=== PATIENT | female | born 1985 | race Two or more races ===

== ENCOUNTER 2023-01-15 12:42 | Outpatient (REF) | payer MEDICAID, OTHER, SELFPAY ==
--- NOTE | ~2023-01-15 | US_ITS ---
EXAMINATION: US PELVIS COMPLETE CLINICAL INFORMATION: Abnormal uterine bleeding COMPARISON: None TECHNIQUE: Transabdominal and transvaginal imaging was performed. FINDINGS: The uterus is of normal size and echogenicity measuring 10.5 x 4.7 x 5.1 cm. A regular homogeneous endometrium is identified measuring 0.8 cm. Both ovaries are of echogenicity and appearance. The right measures 3.9 x 2.2 x 3.1 cm for a volume of 13.9 mL. The left measures 3.9 x 2.9 x 3.5 cm for a volume of 20.7 mL. There is trace physiologic volume simple pelvic free fluid. US/US pelvic and transvaginal IMPRESSION: Unremarkable pelvic ultrasound.
== END 2023-01-15 12:43 | disposition home or self-care (01) ==
LOC: HO.US 12:42
PROVIDERS: Visit Provider Advanced Practice Midwife
DX: N93.9 Abnormal uterine and vaginal bleeding, unspecified (principal)
CPT/HCPCS: 76830; 76856

== ENCOUNTER 2023-05-17 17:30 | Outpatient (REF) | payer MEDICAID, OTHER, SELFPAY ==
[2023-05-18 12:06] LABS: BV Int Neg Control Negative (Negative); BV Int Pos Control Positive (Positive)
== END 2023-05-17 17:31 | disposition home or self-care (01) ==
LOC: HO.HHCLNP 17:30
PROVIDERS: Visit Provider Advanced Practice Midwife
DX: N89.8 Other specified noninflammatory disorders of vagina (principal)
CPT/HCPCS: 87480; 87510; 87660

== ENCOUNTER 2023-07-18 18:39 | Outpatient (REF) | payer MEDICAID, OTHER, SELFPAY ==
[2023-07-20 14:52] LABS: C. trachomatis RNA TMA NOT DETECTED (NOT DETECTED); Candida glabrata RNA NOT DETECTED (NOT DETECTED); Candida species RNA NOT DETECTED (NOT DETECTED); N. gonorrhoeae RNA TMA NOT DETECTED (NOT DETECTED); Trichomonas vaginalis RNA NOT DETECTED (NOT DETECTED)
== END 2023-07-18 18:40 | disposition home or self-care (01) ==
LOC: HO.HHCLNP 18:39
PROVIDERS: Visit Provider Emergency Medicine
DX: N91.1 Secondary amenorrhea (principal)
CPT/HCPCS: 36415; 81513; 87086; 87481; 87491; 87591; 87661

== ENCOUNTER 2025-01-12 16:01 | Outpatient (REF) | payer MEDICAID, OTHER, SELFPAY ==
[2025-01-12 18:10] LABS: Bacterial Vaginosis PCR NEGATIVE (Negative); Candida Group PCR DETECTED (Not Detect); Candida glab krusei PCR NOT DETECTED (Not Detect); Trichomonas vaginalis PCR NOT DETECTED (Not Detect)
[2025-01-12 18:43] LABS: CT PCR NOT DETECTED (Not Detect.); NG PCR NOT DETECTED (Not Detect.)
--- OUTSIDE RECORDS SUMMARY | 2025-01-12 18:43 | XMS_ITS | Encounter Summary ---
Author Organization [employer] Address [address] [place] [address] Care Team Providers Care Museum Assistant Name Role Phone Alma Rosa Monahan NP Primary Care Provider [phone] Reason for Visit * Reason Comments Vaginal Discharge Encounter Details Date Type Department Care Team (Late st Contact Info) Description 01/12/2025 2:00 PM EDT Office Visit [facility] [address], [place] [phone] Jamila Huynh MD [address], [place] [phone] Vaginal discharge Social History Tobacco Use Types Packs/Day Years Used Date Smoking Tobacco: Never Smokeless Tobacco: Never Alcohol Use Standard Drinks/Week Comments Not Currently 0 (1 standard drink = 0.6 oz pur e alcohol) Comments No Sex and Gender Information Value Date Recorded Sex Assigned at Female 07/17/2022 10:39 AM EDT Legal Sex Female 10:39 AM EDT Gender Identity Choose not to disclose 10:39 AM EDT Sexual Orientation Choose not to disclose 2021 10:39 AM EDT documented as of this encounter Last Filed Vital Signs Vital Sign Reading Time Taken Comments Blood Pressure 140/87 01/12/2025 1:41 PM EDT Pulse 86 01/12/2025 1:41 PM EDT Temperature 36.8 ??C (98.2 ??F) 01/12/2025 1:41 PM ED T Respiratory Rate 16 01/12/2025 1:41 PM EDT Oxygen Saturation 99% 01/12/2025 1:41 PM EDT Inhaled Oxygen Concentration - - Weight 79.8 kg (176 lb) 01/12/2025 1:41 PM EDT Height - - Body Mass Index 33.25 02/04/2024 2:05 PM EDT documented in this encounter Progress Notes * Jamila Huynh MD - 01/12/2025 2:00 PM EDT SUBJECTIVE: Rosemary Dorado is a 39 y.o. year old adult who presents for Walk [facility]/vag discharge . Denies recent illness, injury, or hospitalization. Acute Concerns: Pat co whitish, pruriginous vaginal discharge x 2d, dysuria and mild suprapubic pain. Neg nausea, vomiting, diarrhea, fever, chills. She hasn't taken abs recently. She takes OCP daily. Social History Social History Narrative Not on file There is no problem list on file for this patient. No family history on file. Review of Systems Constitutional: Negative for chills, fatigue and fever. HENT: Negative for congestion, ear pain, nosebleeds, rhinorrhea, sinus pressure, sore throat and trouble swallowing. Eyes: Negative for pain and discharge. Respiratory: Negative for cough, chest tightness and shortness of breath. Cardiovascular: Negative for chest pain, palpitations and leg swelling. Gastrointestinal: Negative for abdominal pain, blood in stool, constipation, diarrhea and nausea. Endocrine: Negative for polydipsia and polyuria. Genitourinary: Positive for vaginal discharge. Negative for dysuria, frequency, genital sores and pelvic pain. Musculoskeletal: Negative for back pain and neck pain. Skin: Negative for rash. Allergic/Immunologic: Negative for environmental allergies. Neurological: Negative for dizziness, seizures, weakness, light-headedness and headaches. Hematological: Negative for adenopathy. Psychiatric/Behavioral: Negative for agitation, behavioral problems, self-injury and suicidal ideas. OBJECTIVE: Vitals: 01/12/25 1341 BP: (!) 140/87 Pulse: 86 Resp: 16 Temp: 98.2 ??F (36.8 ??C) SpO2: 99% Physical Exam HENT: Right Ear: Tympanic membrane and ear canal normal. Left Ear: Tympanic membrane and ear canal normal. Mouth/Throat: Mouth: Mucous membranes are moist. Pharynx: No oropharyngeal exudate or posterior oropharyngeal erythema. Eyes: Pupils: Pupils are equal, round, and reactive to light. Cardiovascular: Rate and Rhythm: Regular rhythm. Pulses: Normal pulses. Heart sounds: Normal heart sounds. No murmur heard. Pulmonary: Breath sounds: Normal breath sounds. Abdominal: General: Bowel sounds are normal. Palpations: Abdomen is soft. Tenderness: There is no abdominal tenderness. Musculoskeletal: General: Normal range of motion. Cervical back: Neck supple. Skin: General: Skin is warm. Neurological: General: No focal deficit present. Mental Status: Rosemary is alert and oriented to person, place, and time. Psychiatric: Mood and Affect: Mood normal. Behavior: Behavior normal. Office Visit on 01/12/2025 Component Date Value Ref Range Status Color, UA 01/12/2025 Yellow Final Clarity, UA 01/12/2025 Clear Final Glucose, UA 01/12/2025 Negative Final Bilirubin, UA 01/12/2025 Negative Final Ketones, UA 01/12/2025 Negative Final Spec Grav, UA 01/12/2025 1.015 Final Blood, UA 01/12/2025 Positive (A) Negative, None Detected Final Moderate pH, UA 01/12/2025 6.5 Final Protein, UA 01/12/2025 Negative Final Urobilinogen, UA 01/12/2025 0.2 Final Leukocytes, UA 01/12/2025 Trace Negative, Rare, Trace Final Nitrite, UA 01/12/2025 Negative Negative, None Detected Final Appearance, UA 01/12/2025 Ok Final Preg Test, Ur 01/12/2025 Negative Negative, Indeterminate, None Detected, Invalid, Specimen unsatisfactory for evaluation, Weakly Positive Final Hemoglobin A1C 01/12/2025 5.3 4.0 - 6.0 % Final Glucose Blood, POC 01/12/2025 90 60 - 200 mg/dL Final Diagnoses and all orders for this visit: Vaginal discharge Comments: Most likely vaginal candidiasis, diabetes testing negative. Fluconazole x 1 Avoid use of vaginal douches or scented creams on genital area Orders: - POCT urinalysis dipstick manually resulted - Bacterial Vaginosis - Chlamydia/N. Gonorrhoeae RNA, TMA, Urogenitial - POCT , urine manually resulted - POCT A1C - POCT glucose manually resulted Other orders - fluconazole (Diflucan) 150 MG tablet; Take 1 tablet (150 mg) by mouth Once per day for 1 day. Problem List Items Addressed This Visit None Visit Diagnoses Vaginal discharge Relevant Orders POCT urinalysis dipstick manually resulted (Completed) Bacterial Vaginosis Chlamydia/N. Gonorrhoeae RNA, TMA, Urogenitial POCT , urine manually resulted (Completed) POCT A1C (Completed) POCT glucose manually resulted (Completed) Follow Up: Current Outpatient Medications on File Prior to Visit Medication Sig Dispense Refill Jackie 0.35 MG tablet TAKE 1 TABLET BY MOUTH EVERY MORNING 84 tablet 3 Vit-Fe Fumarate-FA ( Plus) 27-1 MG tablet One tablet by mouth daily 30 tablet 11 No current facility-administered medications on file prior to visit. documented in this encounter Plan of Treatment Upcoming Encounters Date Type Department Care Team (Late st Contact Info) Description 02/03/2025 9:00 AM EDT Office Visit [facility] [address], [place] [phone] Raisa Seals CN [address] [place] [address] Scheduled Orders Name Type Priority Associated Diagnoses Orde r Schedule Chlamydia/N. Gonorrhoeae RNA, TMA, Urogenitial Microbiology Routine Vaginal discharge Ordered: 01/12/2025 documented as of this encounter Procedures Procedure Name Priority Date/Time Associated Diagnosis Comments POCT GLUCOSE Routine 01/12/2025 2:19 PM EDT Vaginal discharge POCT GLYCATED HEMOGLOBIN, TOTAL Routine 01/12/2025 2:18 PM EDT Vaginal discharge POCT , URINE Routine 01/12/2025 1:57 PM EDT Vaginal discharge POCT URINALYSIS DIPSTICK Routine 01/12/2025 1:53 PM EDT Vaginal discharge BACTERIAL VAGINOSIS PANEL Routine 01/12/2025 1:43 PM EDT Vaginal discharge documented in this encounter Results * POCT glucose manually resulted (01/12/2025 2:19 PM EDT) Glucose Blood, POC 90 60 - 200 mg/dL Blood Capillary blood specimen / Unknown 01/12/2025 2:19 PM EDT Result [facility] Jamila Huynh MD POINT OF CARE TEST ENTER /EDIT ORDERABLES Final Result * POCT A1C (01/12/2025 2:18 PM EDT) Pathologist [facility] Hemoglobin A1C 5.3 4.0 - 6.0 % Blood 01/12/2025 2:18 PM EDT Result [facility] Jamila Huynh MD POINT OF CARE TEST ENTER /EDIT ORDERABLES Final Result * POCT , urine manually resulted (01/12/2025 1:57 PM EDT) Pathologist [facility] Preg Test, Ur Negative Negative, Indeterminate, None Detected, Invalid, Specimen unsatisfactory for evaluation, Weakly Positive Urine 01/12/2025 1:57 PM EDT Result [facility] Jamila Huynh MD POINT OF CARE TEST ENTER /EDIT ORDERABLES Final Result * (ABNORMAL) POCT urinalysis dipstick manually resulted (01/12/2025 1:53 PM EDT) Pathologist [facility] Color, UA Yellow Clarity, UA Clear Glucose, UA Negative Bilirubin, UA Negative Ketones, UA Negative Spec Grav, UA 1.015 Blood, UA Positive(A) Negative, None Detected Comment:Moderate pH, UA 6.5 Protein, UA Negative Urobilinogen, UA 0.2 Leukocytes, UA Trace Negative, Rare, Trace Nitrite, UA Negative Negative, None Detected Appearance, UA Ok Urine 01/12/2025 1:53 PM EDT Result [facility] Jamila Huynh MD POINT OF CARE TEST ENTER /EDIT ORDERABLES Final Result * (ABNORMAL) Bacterial Vaginosis (01/12/2025 1:43 PM EDT) TRICHOMONAS VAGINALIS DETECTION BY PCR NOT DETECTED Not Detect [facility] BACTERIAL VAGINOSIS DETECTION BY PCR NEGATIVE Negative [facility] Comment:The BV organism targ ets of the Xpert Xpress MVP test can becommensal in women; Xpert Xpress MVP positive results forbacterial vaginosis should be considered in conjunction withother clinical and patient information to determine thedisease status. Organisms that are not detected by the XpertXpress MVP test have also been reported to be associatedwith BV and aerobic vaginitis.The Xpert Xpress MVP test performance has not been evaluatedin patients under the age of 14. YARA GROUP DETECTION BY PCR DETECTED(A) Not Detect [facility] Yara glab krusei PCR NOT DETECTED Not Detect [facility] Swab Vaginal structure / Unknown 01/12/2025 1:43 PM EDT 01/12/2025 4:02 PM EDT us Jamila Huynh MD LAB MICROBIOLOGY - GENER AL ORDERABLES Final Result [facility] [address] [place] [phone] documented in this encounter Visit Diagnoses Diagnosis Vaginal discharge Leukorrhea, not specified as infective documented in this encounter Care Teams Museum Assistant Relationship Specialty Start Date End Date Alma Rosa Monahan NP [address] [place] [phone] PCP - General Family Medicine 03/19/24 documented as of this encounter
--- OUTSIDE RECORDS SUMMARY | 2025-01-12 18:43 | XMS_ITS | Clinical Summary ---
Author Organization [email or web address] Address [address] [facility] [address] [place] [address] Care Team Providers Care Human Resources Director Name Role Phone HeroAlma Rosa GHASSAN Primary Care Provider [phone] Allergies No known active allergies Medications Vit-Fe Fumarate-FA ( Plus) 27-1 MG tablet One tablet by mouth daily 30 tablet 11 3 Active Jackie 0.35 MG tabletIndications: Encounter for other general counseling or advice on contraception TAKE 1 TABLET BY MOUTH EVERY MORNING 84 tablet 3 4 Active fluconazole (Diflucan) 150 MG tablet Take 1 tablet (150 mg) by mouth Once per day for 1 day. 1 tablet 5 01/14/20 25 Active Active Problems No known active problems Encounters Date Type Department Care Team Description 01/12/2025 2:00 PM EDT Office Visit [facility] [address] [phone] Jamila Huynh MD Vaginal discharge from Last 3 Months Social History Tobacco Use Types Packs/Day Years Used Date Smoking Tobacco: Never Smokeless Tobacco: Never Tobacco Cessation:Counseling Given: Not Answered Alcohol Use Standard Drinks/Week Comments Not Currently 0 (1 standard drink = 0.6 oz pur e alcohol) Comments No Sex and Gender Information Value Date Recorded Sex Assigned at Female 07/17/2022 10:39 AM EDT Legal Sex Female 10:39 AM EDT Gender Identity Choose not to disclose 2 10:39 AM EDT Sexual Orientation Choose not to disclose 2021 10:39 AM EDT Last Filed Vital Signs Vital Sign Reading Time Taken Comments Blood Pressure 140/87 01/12/2025 1:41 PM EDT Pulse 86 01/12/2025 1:41 PM EDT Temperature 36.8 ??C (98.2 ??F) 01/12/2025 1:41 PM ED T Respiratory Rate 16 01/12/2025 1:41 PM EDT Oxygen Saturation 99% 01/12/2025 1:41 PM EDT Inhaled Oxygen Concentration - - Weight 79.8 kg (176 lb) 01/12/2025 1:41 PM EDT Height 154.9 cm (5' 1 ) 02/04/2024 2:05 PM EDT Body Mass Index 33.25 02/04/2024 2:05 PM EDT Plan of Treatment Upcoming Encounters Date Type Department Care Team (Late st Contact Info) Description 02/03/2025 9:00 AM EDT Office Visit [facility] [address] [place], [place] [phone] Raisa Seals, [facility] [address], [place] [phone] Health Maintenance Due Date Last Done Comments Depression Screening 1985 SDOH Screening 1985 Alcohol/Substance Use Screening 1997 DTaP/Tdap/Td Vaccines (1 - Tdap) 2004 Hepatitis A Vaccines (1 of 2 - Risk 2-dose series) 2004 Hepatitis B Vaccines (1 of 3 - 19+ 3-dose series) 2004 COVID-19 Vaccine ( - 2023-2 5 season) 2024 Influenza Vaccine (#1) 2024 Family Planning (PISQ) 02/03/2025 02/04/2024 Tobacco Screening 02/03/2025 02/04/2024 Pap Smear 05/31/2025 05/31/2022, 05/31/2022 Cervical Cancer Screening 05/31/2027 HPV/Cotest 05/31/2027 05/31/2022 Zoster Vaccines (1 of 2) 2035 RSV Patients and Patients Aged 60 years or older (1 - 1-dose 75+ series) 2060 HIV Screening Completed 01/24/2022 Hepatitis C Screening Completed 01/24/2022 HIB Vaccines Aged Out No longer eligi ble based on patient's age to complete this topic HPV Vaccines Aged Out No longer eligi ble based on patient's age to complete this topic IPV Vaccines Aged Out No longer eligi ble based on patient's age to complete this topic Meningococcal Vaccine Aged Out No kevin evelyn eligible based on patient's age to complete this topic Pneumococcal Vaccine: Pediatrics (0 to 5 Years) and At-Risk Patients (6 to 49) Years) Aged Out No longer eligible b ased on patient's age to complete this topic RSV under 20 months Aged Out No longe r eligible based on patient's age to complete this topic Rotavirus Vaccines Aged Out No longer eligible based on patient's age to complete this topic Procedures Procedure Name Priority Date/Time Associated Diagnosis Comments POCT GLUCOSE Routine 01/12/2025 2:19 PM EDT Vaginal discharge POCT GLYCATED HEMOGLOBIN, TOTAL Routine 01/12/2025 2:18 PM EDT Vaginal discharge POCT , URINE Routine 01/12/2025 1:57 PM EDT Vaginal discharge POCT URINALYSIS DIPSTICK Routine 01/12/2025 1:53 PM EDT Vaginal discharge BACTERIAL VAGINOSIS PANEL Routine 01/12/2025 1:43 PM EDT Vaginal discharge THINPREP IMAGING PAP AND HPV MRNA E6/E7 WITH REFLEX TO HPV 16,18/45 Routine 05/31/2022 10:32 AM EDT PAP SMEAR Routine 05/31/2022 12:00 AM EDT ZZZ HISTORICAL HEPATITIS C AB W/REFL TO HCV RNA, QN, PCR Routine 01/24/2022 11:04 AM EDT HIV 1/2 ANTIGEN/ANTIBODY, FOURTH GENERATION W/RFL Routine 01/24/2022 11:04 AM EDT from Last 3 Months or Most Recently Relevant to Health Maintenance Results * POCT glucose manually resulted (01/12/2025 2:19 PM EDT) Glucose Blood, POC 90 60 - 200 mg/dL Blood Capillary blood specimen / Unknown 01/12/2025 2:19 PM EDT Result [facility] Jamila Huynh MD POINT OF CARE TEST ENTER /EDIT ORDERABLES Final Result * POCT A1C (01/12/2025 2:18 PM EDT) Pathologist [facility] Hemoglobin A1C 5.3 4.0 - 6.0 % Blood 01/12/2025 2:18 PM EDT Result [facility] Jamila Huynh MD POINT OF CARE TEST ENTER /EDIT ORDERABLES Final Result * POCT , urine manually resulted (01/12/2025 1:57 PM EDT) Pathologist [facility] Preg Test, Ur Negative Negative, Indeterminate, None Detected, Invalid, Specimen unsatisfactory for evaluation, Weakly Positive Urine 01/12/2025 1:57 PM EDT Result [facility] Jamila Huynh MD POINT OF CARE TEST ENTER /EDIT ORDERABLES Final Result * (ABNORMAL) POCT urinalysis dipstick manually resulted (01/12/2025 1:53 PM EDT) Pathologist [facility] Color, UA Yellow Clarity, UA Clear Glucose, UA Negative Bilirubin, UA Negative Ketones, UA Negative Spec Grav, UA 1.015 Blood, UA Positive(A) Negative, None Detected Comment:Moderate pH, UA 6.5 Protein, UA Negative Urobilinogen, UA 0.2 Leukocytes, UA Trace Negative, Rare, Trace Nitrite, UA Negative Negative, None Detected Appearance, UA Ok Urine 01/12/2025 1:53 PM EDT Result [facility] Jamila Huynh MD POINT OF CARE TEST ENTER /EDIT ORDERABLES Final Result * (ABNORMAL) Bacterial Vaginosis (01/12/2025 1:43 PM EDT) TRICHOMONAS VAGINALIS DETECTION BY PCR NOT DETECTED Not Detect [facility] BACTERIAL VAGINOSIS DETECTION BY PCR NEGATIVE Negative [facility] Comment:The BV organism targ ets of [...] GROUP DETECTION BY PCR DETECTED(A) Not Detect [facility] Yara glab krusei PCR NOT DETECTED Not Detect [facility] Swab Vaginal structure / Unknown 01/12/2025 1:43 PM EDT 01/12/2025 4:02 PM EDT us Jamila Huynh MD LAB MICROBIOLOGY - GENER AL ORDERABLES Final Result [facility] [address] [place] [phone] * THINPREP TIS PAP AND HPV mRNA E6/E7 WITH REFLEX TO HPV 16,18/45 (05/31/2022 10:32 AM EDT) Clinical Information: None given [facility] COMMENT SEE COMMENT [facility] Comment: EXPLANATORY NOTE: ? The Pap is a screening test for cervical cancer. It is ?? not a diagnostic test and is subject to false negative ?? and false positive results. It is most reliable when a ?? satisfactory sample, regularly obtained, is submitted ?? with relevant clinical findings and history, and when ?? the Pap result is evaluated along with historic and ?? current clinical information. ?? COMMENT: This Pap test has been evaluated with computer assisted technology. [facility] Cytotechnologis t: SEE COMMENT [facility] Comment: KAYLA JIMENEZ(ASCP) CT screening location: [facility] ??[id number] HPV nRNA E6/E7 Not Detected Not Detected [facility] Comment: Methodology: [employer] Aide-Mediated Amplification This assay detects E6/E7 viral messenger RNA (mRNA) from 14 high-risk HPV types (16,18,31,33,35,39,45,51,52,56,58,59,66,68). ? Cervical sources are required for HPV testing. If a vaginal source from a patient who has had a total hysterectomy with removal of cervix was ?? submitted, please contact the testing laboratory for alternative testing options. ?? For additional information, please refer to http://education.FireEye/faq/SCK942b5 (This link if provided for information/ educational purposes only.) Interpretation/ Result: Negative for intraepithelial lesion or malignancy. [facility] LMP: 05/2022 [facility] Prev. BX: NONE GIVEN [facility] Prev. PAP: UNSURE [facility] SOURCE: None given [facility] Statement Of Adequacy: SEE COMMENT [facility] Comment: Satisfactory for evaluation. Endocervical/transformation zone component present. 05/31/2022 10:3 2 AM EDT Raisa Seals [facility] LAB PATHOLOGY ORDERABLES Final Result [facility] [address] * Pap Smear (05/31/2022 12:00 AM EDT) Swab Raisa Seals [facility] LAB CYTOLOGY ORDERABLES F inal Result [address], [place] [phone] * HEPATITIS C AB W/REFL TO HCV RNA, QN, PCR (01/24/2022 11:04 AM EDT) HEPATITIS C ANTIBODY NON-REACT JOANNE NON-REACT JOANNE [facility] INDEX 0.02 <1.00 [facility] Comment: ?? HCV antibody was non-reactive. There is no laboratory ?? evidence of HCV infection. ?? In most cases, no further action is required. However, if recent HCV exposure is suspected, a test for HCV RNA (test code 31328) is suggested. ?? For additional information please refer to http://[employer].FireEye/faq/WGT20y5 (This link is being provided for informational/ educational purposes only.) ?? 01/24/2022 11:0 4 AM EDT Ana Rosa Elke NURSE RECEPTIONIST HISTORICAL/NON ORDERABLE LABS Final Result Performing Organization Address [facility] Phone Number [facility] [address] * HIV 1/2 ANTIGEN/ANTIBODY,FOURTH GENERATION W/RFL (01/24/2022 11:04 AM EDT) Pathologist [facility] HIV-1/2 ANTIGEN AND ANTIBODIES, 4TH GENERATION W/ REFLEX NON-REACT JOANNE NON-REACT JOANNE [facility] Comment: HIV-1 antigen and HIV-1/HIV-2 antibodies were not detected. There is no laboratory evidence of HIV infection. ?? PLEASE NOTE: This information has been disclosed to you from records whose confidentiality may be protected by state law. ??If your state requires such protection, then the state law prohibits you from making any further disclosure of the information without the specific written consent of the person to whom it pertains, or as otherwise permitted by law. A general authorization for the release of medical or other information is NOT sufficient for this purpose. ? For additional information please refer to http://[employer].FireEye/faq/USH849 (This link is being provided for informational/ educational purposes only.) ? The performance of this assay has not been clinically validated in patients less than 2 years old. ?? 01/24/2022 11:0 4 AM EDT Ana RosaTextbroker NURSE RECEPTIONIST LAB BLOOD ORDERABLES Final Res ult Performing Organization Address [facility] Phone Number [facility] [address] from Last 3 Months or Most Recently Relevant to Health Maintenance Insurance [facility] [employer] Care Teams Human Resources Director Relationship Specialty Start Date End Date Alma Rosa Monahan NP [address] [place] [phone] PCP - General Family Medicine 03/19/24
--- OUTSIDE RECORDS SUMMARY | 2025-01-12 18:43 | XMS_ITS | Encounter Summary ---
Author Organization [employer] Address 75 [facility] 7t [place] [address] Care Team Providers Care Regional Telecommunications Specialist Name Role Phone Eneida PeralesP Primary Care Provider [phone] Alma Rosa Monahan NP Primary Care Provider [phone] Encounter Details Date Type Department Care Team (Late Contact Info) Description 01/16/2024 Telephone [facility] MEDICINE [address] [place], [place] [phone] Eneida Perales FNP [address] [place] [address] Social History Tobacco Use Types Packs/Day Years Used Date Smoking Tobacco: Never Smokeless Tobacco: Never Alcohol Use Standard Drinks/Week Comments Never 0 (1 standard drink = 0.6 oz pur e alcohol) Comments No Sex and Gender Information Value Date Recorded Sex Assigned at Female 07/17/2022 10:39 AM EDT Legal Sex Female 10:39 AM EDT Gender Identity Choose not to disclose 10:39 AM EDT Sexual Orientation Choose not to disclose 2021 10:39 AM EDT documented as of this encounter Plan of Treatment Upcoming Encounters Date Type Department Care Team (Late Contact Info) Description 02/03/2025 9:00 AM EDT Office Visit [facility] MEDICINE [address] [place] [address] Raisa Seals CNM [address] [place], [place] [phone] documented as of this encounter Visit Diagnoses Not on filedocumented in this encounter Care Teams Regional Telecommunications Specialist Relationship Specialty Start Date End Date Eneida Perales FNP [address] [place] [address] PCP - General Family Medicine 02/09/23 03/18/24 Alma Rosa Monahan NP [address] [place] [address] PCP - General Family Medicine 03/19/24 documented as of this encounter
== END 2025-01-12 16:02 | disposition home or self-care (01) ==
LOC: HO.HHCLNP 16:01
PROVIDERS: Visit Provider Internal Medicine
DX: N89.8 Other specified noninflammatory disorders of vagina (principal)
CPT/HCPCS: 81515; 87491; 87591

== ENCOUNTER 2025-02-03 09:29 | Outpatient (REF) | payer MEDICAID, OTHER, SELFPAY ==
--- OUTSIDE RECORDS SUMMARY | 2025-02-03 10:22 | XMS_ITS | Encounter Summary ---
Author Organization [employer] Address 75 [facility] 7t [place] [address] Care Team Providers Care Freezer Operator Name Role Phone Alma Rosa Monahan NP Primary Care Provider [phone] Encounter Details Date Type Department Care Team (Late st Contact Info) Description 02/03/2025 9:00 AM EDT Office [facility] MEDICINE [address] [place], [place] [phone] Raisa Seals CNM [address] [place], [place] [phone] Visit for pelvic exam (Primary Dx); Irregular periods Social History Tobacco Use Types Packs/Day Years [...] Sign Reading Time Taken Comments Blood Pressure 133/85 02/03/2025 8:56 AM EDT Pulse 87 02/03/2025 8:56 AM EDT Temperature 33.3 ??C (92 ??F) 02/03/2025 8:56 AM EDT Respiratory Rate 20 02/03/2025 8:56 AM EDT Oxygen Saturation - - Inhaled Oxygen Concentration - - Weight 80 kg (176 lb 6.4 oz) 02/03/2025 8:56 AM EDT Height 154.9 cm (5' 1 ) 02/03/2025 8:56 AM EDT Body Mass Index 33.33 02/03/2025 8:56 AM EDT documented in this encounter Plan of Treatment Scheduled Orders Name Type Priority Associated Diagnoses Orde r Schedule POCT , urine manually resulted Point of Care Testing Routine Irregular periods Ordered: 02/03/2025 TSH W/Reflex to FT4 Lab Routine Irregular periods Expected: 02/03/2025 (Approximate), Expires: 02/03/2026 Prolactin Lab Routine Irregular periods Expected: 02/03/2025 (Approximate), Expires: 02/03/2026 hCG, Total, Quantitative Lab Routine Irregular periods Expected: 02/03/2025 (Approximate), Expires: 02/03/2026 documented as of this encounter Visit Diagnoses Diagnosis Visit for pelvic exam- Primary Irregular periods documented in this encounter Care Teams Freezer Operator Relationship Specialty Start Date End Date Alma Rosa Monahan NP [address] [place] [address] PCP - General Family Medicine 03/19/24 documented as of this encounter
--- OUTSIDE RECORDS SUMMARY | 2025-02-03 10:22 | XMS_ITS | Clinical Summary ---
Author Organization [email or web address] Address 75 [facility] 7t [place] [address] Care Team Providers Care Merchandising Execution Manager Name Role Phone Alma Rosa Monahan NP Primary Care Provider [phone] Allergies No known active allergies Medications Vit-Fe Fumarate-FA ( Plus) 27-1 MG tablet One tablet by mouth daily 30 tablet 11 3 Active Jackie 0.35 MG tabletIndications :Encounter for other general counseling or advice on contraception TAKE 1 TABLET BY MOUTH EVERY MORNING 84 tablet 3 4 Active terconazole (Terazol 7) 0.4 % vaginal cream Insert 1 applicator into the vagina at bedtime for 7 days. 45 g 5 025 Active fluconazole (Diflucan) 150 MG tablet Take 1 tablet (150 mg) by mouth Once per day for 1 day. 1 tablet 5 025 Active Problems No known active problems Encounters Date Type Department Care Team Description 02/03/2025 9:00 AM EDT Office Visit [facility] MEDICINE [address] [place] [phone] Raisa Seals CNM Visit for pelvic exam (Primary Dx); Irregular periods 02/03/2025 Travel 01/12/2025 2:00 PM EDT Office Visit [facility] [address] [place] [address] Jamila Huynh MD Vaginal discharge from Last [...] 20 02/03/2025 8:56 AM EDT Oxygen Saturation 99% 01/12/2025 1:41 PM EDT Inhaled Oxygen Concentration - - Weight 80 kg (176 lb 6.4 oz) 02/03/2025 8:56 AM EDT Height 154.9 cm (5' 1 ) 02/03/2025 8:56 AM EDT Body Mass Index 33.33 02/03/2025 8:56 AM EDT Plan of Treatment Health Maintenance Due Date Last Done Comments Depression Screening 1985 SDOH Screening 1985 Disability Screening 1985 Alcohol/Substance Use Screening 1997 DTaP/Tdap/Td [...] patient's age to complete this topic Meningococcal B Vaccine Aged Out No l onger eligible based on patient's age to complete [...] Routine 01/12/2025 1:53 PM EDT Vaginal discharge CHLAMYDIA/N. GONORRHOEAE RNA, TMA, UROGENITAL Routine 01/12/2025 1:43 PM EDT Vaginal discharge BACTERIAL VAGINOSIS PANEL [...] glucose manually resulted (01/12/2025 2:19 PM EDT) Pathologist [facility] Glucose Blood, POC 90 60 - 200 mg/dL Blood Capillary blood specimen / Unknown 01/12/2025 2:19 PM EDT Jamila Huynh MD POINT OF CARE TEST ENTER /EDIT ORDERABLES Final Result * POCT A1C (01/12/2025 2:18 PM EDT) Pathologist [facility] Hemoglobin A1C 5.3 4.0 - 6.0 % Blood 01/12/2025 2:18 PM EDT Jamila Huynh MD POINT OF CARE TEST ENTER /EDIT ORDERABLES Final Result * POCT , urine manually resulted (01/12/2025 1:57 PM EDT) Pathologist [facility] Preg Test, Ur Negative Negative, Indeterminate, None Detected, Invalid, Specimen unsatisfactory for evaluation, Weakly Positive Urine 01/12/2025 1:57 PM EDT Jamila Huynh MD POINT OF CARE TEST ENTER /EDIT ORDERABLES Final Result * (ABNORMAL) POCT urinalysis dipstick manually resulted (01/12/2025 1:53 PM EDT) Pathologist [facility] Color, UA Yellow Clarity, UA Clear Glucose, UA Negative Bilirubin, UA Negative Ketones, UA Negative Spec Grav, UA 1.015 Blood, UA Positive(A) Negative, None Detected Comment:Moderate pH, UA 6.5 Protein, UA Negative Urobilinogen, UA 0.2 Leukocytes, UA Trace Negative, Rare, Trace Nitrite, UA Negative Negative, None Detected Appearance, UA Ok Urine 01/12/2025 1:53 PM EDT Jamila Huynh MD POINT OF CARE TEST ENTER /EDIT ORDERABLES Final Result * (ABNORMAL) Bacterial Vaginosis (01/12/2025 1:43 PM EDT) TRICHOMONAS VAGINALIS DETECTION BY PCR NOT DETECTED Not Detect [facility] BACTERIAL VAGINOSIS DETECTION BY PCR NEGATIVE Negative [facility] Comment:The BV organism targ ets [...] GROUP DETECTION BY PCR DETECTED(A) Not Detect [facility] Yara glab krusei PCR NOT DETECTED Not Detect [facility] Swab Vaginal structure / Unknown 01/12/2025 1:43 PM EDT 01/12/2025 4:02 PM EDT Jamila Huynh MD LAB MICROBIOLOGY - GENER AL ORDERABLES Final Result [facility] [address] [place] [phone] * Chlamydia/N. Gonorrhoeae RNA, TMA, Urogenitial (01/12/2025 1:43 PM EDT) CT PCR NOT DETECTED Not Detect. [facility] Comment:A not detected test result does not exclude the possibilityof infection because test results can be affected byimproper specimen collection, concurrent antibiotic therapy,or the number of organisms in the specimen which may bebelow the sensitivity of the test. As with many diagnostictests, results from the Xpert CT/NG assay should beinterpreted in conjunction with other laboratory andclinical data available to the clinician.Xpert CT/NG performance has not been evaluated in patientsless than 14 years of age. The assay should not be used forthe evaluationof suspected sexual abuse or for other medico-legalindications. Additional testing is recommended in anycircumstance when false positive or false negative resultscould lead to adverse medical, social or psychologicalconsequences. NG PCR NOT DETECTED Not Detect. [facility] Comment:A not detected test result does not exclude the possibilityof infection because test results can be affected byimproper specimen collection, concurrent antibiotic therapy,or the number of organisms in the specimen which may bebelow the sensitivity of the test. As with many diagnostictests, results from the Xpert CT/NG assay should beinterpreted in conjunction with other laboratory andclinical data available to the clinician.Xpert CT/NG performance has not been evaluated in patientsless than 14 years of age. The assay should not be used forthe evaluationof suspected sexual abuse or for other medico-legalindications. Additional testing is recommended in anycircumstance when false positive or false negative resultscould lead to adverse medical, social or psychologicalconsequences. Swab (Vaginal Swab) 01/12/2025 1:43 PM EDT 01/12/2025 4:02 PM EDT Narrative [facility] - 01/12/2025 6:43 PM EDT Vaginal Jaimla Huynh MD LAB MICROBIOLOGY - GENER AL ORDERABLES Final Result [facility] [address] [place] [address] [phone] * THINPREP TIS PAP AND HPV mRNA E6/E7 WITH REFLEX TO HPV 16,18/45 (05/31/2022 10:32 AM EDT) Clinical Information: None given [facility] COMMENT SEE COMMENT [facility] [...] has been evaluated with computer assisted technology. [facility] Cytotechnologis t: SEE COMMENT [facility] Comment: MAA, CT(ASCP) CT screening location: [address] ??[id number] HPV nRNA E6/E7 Not Detected Not Detected [facility] Comment: Methodology: Environmental Field Office Manager-Mediated Amplification This assay detects E6/E7 viral messenger RNA (mRNA) from 14 high-risk HPV types (16,18,31,33,35,39,45,51,52,56,58,59,66,68). ? Cervical sources are required for HPV testing. If a vaginal source from a patient who has had a total hysterectomy with removal of cervix was ?? submitted, please contact the testing laboratory for alternative testing options. ?? For additional information, please refer to http://education.[employer]faq/VLT845g8 (This link if provided for information/ educational purposes only.) Interpretation/ Result: Negative for intraepithelial lesion or malignancy. [facility] LMP: 05/2022 [facility] Prev. BX: NONE GIVEN [facility] Prev. PAP: UNSURE [facility] SOURCE: None given [facility] Statement Of Adequacy: SEE COMMENT [facility] Comment: Satisfactory for evaluation. Endocervical/transformation zone component present. 05/31/2022 10:3 2 AM EDT Raisa BENTLEY LAB PATHOLOGY ORDERABLES Final Result Performing Organization Address City/[facility]/ZIP Co de Phone Number [facility] [address] * Pap Smear (05/31/2022 12:00 AM EDT) Swab Raisa BENTLEY LAB CYTOLOGY ORDERABLES F inal Result [address], [facility], [place] [address] * HEPATITIS C AB W/REFL TO HCV RNA, QN, PCR (01/24/2022 11:04 AM EDT) HEPATITIS C ANTIBODY NON-REACT JOANNE NON-REACT JOANNE [facility] INDEX 0.02 <1.00 [facility] Comment: ?? HCV antibody was non-reactive. There is no laboratory ?? evidence of HCV infection. ?? In most cases, no further action is required. However, if recent HCV exposure is suspected, a test for HCV RNA (test code 75477) is suggested. ?? For additional information please refer to http://[employer]faq/ZLK61q6 (This link is being provided for informational/ educational purposes only.) ?? 01/24/2022 11:0 4 AM EDT Ana Rosa Bedoya [facility] HISTORICAL/NON ORDERABLE LABS Final Result [facility] [address] * HIV 1/2 ANTIGEN/ANTIBODY,FOURTH GENERATION W/RFL (01/24/2022 11:04 AM EDT) HIV-1/2 ANTIGEN AND ANTIBODIES, 4TH GENERATION W/ REFLEX NON-REACT JOANNE NON-REACT JOANNE [facility] Comment: HIV-1 antigen and HIV-1/HIV-2 [...] ? For additional information please refer to http://[employer]faq/UIX081 (This link is being provided for informational/ educational purposes only.) ? The performance of this assay has not been clinically validated in patients less than 2 years old. ?? 01/24/2022 11:0 4 AM EDT Ana Rosa Bedoya MEDIA MARKETING DIRECTOR LAB BLOOD ORDERABLES Final Res ult [facility] [address] from Last 3 Months or Most Recently Relevant to Health Maintenance Insurance [facility] FULL Care Teams Merchandising Execution Manager Relationship Specialty Start Date End Date Alma Rosa Monahan NP [address] [place] [address] PCP - General Family Medicine 03/19/24
--- OUTSIDE RECORDS SUMMARY | 2025-02-03 10:22 | XMS_ITS | Encounter Summary ---
Author Organization [employer] [facility] Address 75 [facility] 7t [place] [address] Care Team Providers Care Postpartum Rn Name Role Phone Alma Rosa Monahan NP Primary Care Provider [phone] Encounter Details Date Type Department Care Team (Latest Contact Info) Description 02/03/2025 Travel Social History Tobacco Use Types Packs/Day Years [...] as of this encounter Plan of Treatment Not on file documented as of this encounter Visit Diagnoses Not on filedocumented in this encounter Care Teams Postpartum Rn Relationship Specialty Start Date End Date Alma Rosa Monahan NP [address] [place] [address] PCP - General Family Medicine 03/19/24 documented as of this encounter
--- OUTSIDE RECORDS SUMMARY | 2025-02-03 10:22 | XMS_ITS | Encounter Summary ---
Author Organization [employer] [facility] Address [address] [place] [address] 7t [place] [address] Care Team Providers Care Storage Architect Name Role Phone Eneida Perales Primary Care Provider [phone] Alma Rosa Monahan NP Primary Care Provider [phone] Encounter Details Date Type Department Care Team (Late st Contact Info) Description 01/16/2024 Telephone [facility] MEDICINE [address] [place], [place] [phone] Eneida Perales FNP [address] [place] [address] Social History Tobacco Use Types Packs/Day Years [...] on filedocumented in this encounter Care Teams Storage Architect Relationship Specialty Start Date End Date Eneida Perales FNP [address] [place] [address] PCP - General Family Medicine 02/09/23 03/18/24 Alma Rosa Monahan NP [address] [place] [address] PCP - General Family Medicine 03/19/24 documented as of this encounter
[2025-02-03 12:35] LABS: HCG Quantitative < 2 mIU/mL; TSH reflex Free T4 2.72 uIU/mL (0.32-4.0)
[2025-02-04 03:05] LABS: Prolactin 9.9 ng/mL
== END 2025-02-03 09:30 | disposition home or self-care (01) ==
LOC: HO.HHCL 09:29
PROVIDERS: Visit Provider Advanced Practice Midwife
DX: N92.6 Irregular menstruation, unspecified (principal)
CPT/HCPCS: 36415; 84146; 84443; 84702

== ENCOUNTER 2025-07-07 12:10 | Outpatient (REF) | payer MEDICAID, OTHER, SELFPAY ==
--- OUTSIDE RECORDS SUMMARY | 2025-07-07 11:30 | XMS_ITS | Encounter Summary ---
Author Organization [employer] Address 75 [facility] 7t [place] [address] Care Team Providers Care Jump Iron Machine Presser Name Role Phone Alma Rosa Monahan NP Primary Care Provider [phone] Reason for Visit * Reason Comments CHW - Office Visit Encounter Details Date Type Department Care Team (Latest Contact Info) Description 07/07/2025 11:30 AM EDT Office Visit [facility] MEDICINE [address] [place], [place] [phone] Raisa Seals CNM [address] [place], [place] [phone] Encounter for preconception consultation (Primary Dx); Encntr screen for infections w sexl mode of transmiss; Irregular menses Social History Tobacco Use Types Packs/Day Years Used Date Smoking Tobacco: Never Smokeless Tobacco: Never Tobacco Cessation:Counseling Given: Not Answered Alcohol Use Standard Drinks/Week Comments Not Currently 0 (1 standard drink = 0.6 oz pur e alcohol) Housing Stability Answer Date Recorded What is your housing situation today? I have fabienne nguyen 07/07/[address] you li ve. Do you have problems with any of the following? Not on file 07/07/2025 Food Insecurity Answer Date Recorded Within the past 12 months, y ou worried that your food would run out before you got money to buy more: Never True 07/07/2025 Within the past 12 months,th e food you bought just didn't last and you didn't have enough money to get more: Never True Transportation Answer Date Recorded In the past 12 months, has l ack of transportation kept you from medical appts, meetings, work or from getting things needed for daily living? No 07/07/2025 Utilities Answer Date Recorded In the past 12 months, has t he electric, gas, oil or water company threatened to shut off services in your home? No 07/07/2025 Depression Answer Date Recorded Patient Health Questionnaire-2 Score 0 07/07/2025 Internet Access Answer Date Recorded Internet Access Q1 Yes 07/07/2025 Internet Access Q2 Not on file 07/07/2025 Comments No Intention Date Recorded Wants to become (finding) 07/07 Sex and Gender Information Value Date Recorded Sex Assigned at Female 07/17/2022 10:39 AM EDT Legal Sex Female 10:39 AM EDT Gender Identity Choose not to disclose 10:39 AM EDT Sexual Orientation Choose not to disclose 2021 10:39 AM EDT documented as of this encounter Last Filed Vital Signs Vital Sign Reading Time Taken Comments Blood Pressure 142/72 07/07/2025 11:37 AM EDT Pulse 84 07/07/2025 11:37 AM EDT Temperature 36.6 C (97.8 F) 07/07/2025 11:37 AM EDT Respiratory Rate 14 07/07/2025 11:37 AM EDT Oxygen Saturation 99% 07/07/2025 11:37 AM EDT Inhaled Oxygen Concentration - - Weight 76.9 kg (169 lb 9.6 oz) 07/07/2025 11:37 AM EDT Height - - Body Mass Index 32.05 02/03/2025 8:56 AM EDT documented in this encounter Functional Status * Over the past 2 weeks, how often have you been bothered by any of the following problems? Question Answer Date of Assessment Author Patient Health Questionnaire -2 Score 0 07/07/2025 12:31 PM EDT Melanie Michel MA * Little interest or pleasure in doing things Answer Date of Assessment Author Not at all 07/07/2025 12:31 PM EDT Melanie Michel MA * Feeling down, depressed, or hopeless Answer Date of Assessment Author Not at all 07/07/2025 12:31 PM EDT Melanie Michel MA * Feeling tired or having little energy Answer Date of Assessment Author Several days 07/07/2025 12:31 PM EDT Melanie Michel MA * Poor appetite or overeating Answer Date of Assessment Author Several days 07/07/2025 12:31 PM EDT Melanie Michel MA * Feeling bad about yourself - or that you are a failure or have let yourself or your family down Answer Date of Assessment Author Not at all 07/07/2025 12:31 PM EDT Melanie Michel MA * Trouble concentrating on things, such as reading the newspaper or watching television Answer Date of Assessment Author Not at all 07/07/2025 12:31 PM EDT Melanie Michel MA * Moving or speaking so slowly that other people could have noticed? Or the opposite - being so fidgety or restless that you have been moving around a lot more than usual. Answer Date of Assessment Author Several days 07/07/2025 12:31 PM EDT Melanie Michel MA * Thoughts that you would be better off or hurting yourself in some way Answer Date of Assessment Author Not at all 07/07/2025 12:31 PM EDT Melanie Michel MA documented as of this encounter Progress Notes * Raisa Seals, JESSICA - 07/07/2025 11:30 AM EDT Subjective Patient ID: Rosemary Dorado is a 40 y.o. adult who presents for followup Previously on NET progestin only pill. Amenorrheic on pill, normal TSH/Prl 01/2025. Pap NIL/HPV neg 05/2022. Stopped oral contraceptive pill in order to get . Here with AMAB partner. He has notfathered any children, is in good health. They have been trying to get x 3 months. LMP 10/10, gun perforator and shorter than usual for her. Thinks she had normal menses monthly otherwise since stopping oral contraceptive pill. Noted breast tenderness prior to menses. Would like vaginal infection testing today, notes some irritation. Would like to self collect samples. Review of Systems Genitourinary: Positive for menstrual problem. Negative for pelvic pain, vaginal bleeding, vaginal discharge and vaginal pain. Objective BP (!) 142/72 (BP Location: Left arm, Patient Position: Sitting, BP Cuff Size: Adult) Pulse 84 Temp 97.8 ??F (36.6 ??C) (Oral) Resp 14 Wt 169 lb 9.6 oz (76.9 kg) LMP 06/26/2025 SpO2 99% BMI 32.05 kg/m?? Physical Exam Constitutional: Appearance: Normal appearance. Neurological: Mental Status: Rosemary is alert. Psychiatric: Mood and Affect: Mood normal. Behavior: Behavior normal. Assessment/Plan Diagnoses and all orders for this visit: Encounter for preconception consultation - Referral to Infertility; Future Given information on ovulation predictor kits to help time sex. Will check hcg today in light of menstrual changes. If not , will refer to [facility] based on age and not after 3 months, but insurance unlikely to cover. Reviewed preconception counseling. sent in. Urged toxin avoidance if trying to get for both self and partner. Reviewed that there is no amount of alcohol that is safe in , so best to avoid alcohol while trying to get . Encntr screen for infections w sexl mode of transmiss - Bacterial Vaginosis, Yeast and Trich; Future - Chlamydia/N. Gonorrhoeae RNA, TMA, Vagina Vaginal infection tests sent. Irregular menses - hCG, Total, Quantitative; Future Recent menses gun perforator/shorter than expected. Will check hcg as precaution. Other orders - Vit-Fe Fumarate-FA ( Plus) 27-1 MG tablet; One tablet by mouth daily documented in this encounter Plan of Treatment Scheduled Orders Name Type Priority Associated Diagnoses Orde r Schedule Bacterial Vaginosis, Yeast and Trich Microbiology Routine Encntr screen for infections w sexl mode of transmiss Expected: 07/07/2025 (Approximate), Expires: 07/07/2026 Chlamydia/N. Gonorrhoeae RNA, TMA, Vagina Microbiology Routine Encntr screen for infections w sexl mode of transmiss Ordered: 07/07/2025 documented as of this encounter Procedures Procedure Name Priority Date/Time Associated Diagnosis Comments HCG, TOTAL, QN Routine 07/07/2025 12:24 PM EDT Irregular menses documented in this encounter Results * hCG, Total, Quantitative (07/07/2025 12:24 PM EDT) HCG Quantitative <2 mIU/mL [facility] Comment:Weeks post LMP Appro ximate hCG(Last Menstrual Period) Range (mIU/ml)3 - 4 weeks 9 - 1304 - 5 weeks 75 - 2,6005 - 6 weeks 850 - 20,8006 - 7 weeks 4000 - 100,2007 - 12 weeks 11,500 - 289,41034 - 16 weeks 18,300 - 137,09484 - 29 weeks (2nd trimester) 1,400 - 53,25539 - 41 weeks (3rd trimester) 940 - 60,000The Donato B- hCG assay is used for the early detection ofpregnancy; it cannot be used to diagnose any conditionunrelated to . If a B-hCG level is not supportedby the clinical evidence, results should be confirmed by analternative method (qualitative urine hCG, for example). Blood Venous blood specimen / Unknown 07/07/2025 12:24 PM EDT 07/07/2025 1:28 PM EDT us Raisa Seals [facility] BLOOD ORDERABLES Maia l Result [facility] [address] [place] [address] [phone] documented in this encounter Visit Diagnoses Diagnosis Encounter for preconception consultation- Primary Encntr screen for infections w sexl mode of transmiss Irregular menses Irregular menstrual cycle documented in this encounter Care Teams Jump Iron Machine Presser Relationship Specialty Start Date End Date Alma Rosa Monahan NP [address] [place] [address] PCP - General Family Medicine 03/19/24 documented as of this encounter
--- OUTSIDE RECORDS SUMMARY | 2025-07-07 15:39 | XMS_ITS | Encounter Summary ---
Author Organization [employer] [facility] Address [address] [place] [address] [address] [place] [address] Care Team Providers Care Tobacco Prevention Health Educator Name Role Phone Eneida Perales Primary Care Provider [phone] Alma Rosa Monahan NP Primary Care Provider [phone] Encounter Details Date Type Department Care Team (Late st Contact Info) Description 01/16/2024 Telephone [facility] [address] [place], [place] [phone] Eneida Perales FNP [address] [place] [address] Social History Tobacco Use Types Packs/Day Years [...] on filedocumented in this encounter Care Teams Tobacco Prevention Health Educator Relationship Specialty Start Date End Date Eneida Perales FNP [address] [place] [address] PCP - General Family Medicine 02/09/23 03/18/24 Alma Rosa Monahan NP [address] [place] [phone] PCP - General Family Medicine 03/19/24 documented as of this encounter
--- OUTSIDE RECORDS SUMMARY | 2025-07-07 15:39 | XMS_ITS | Clinical Summary ---
Author Organization [employer] Address [address] [place] [address] [address] [place] [address] Care Team Providers Care Insurance Claims Examiner Name Role Phone Alma Rosa Monahan NP Primary Care Provider [phone] Allergies No known active allergies Medications norethindrone (Micronor) 0.35 MG tabletIndications :Encounter for other general counseling or advice on contraception TAKE 1 TABLET BY MOUTH EVERY MORNING 84 tablet 3 06/03/20 25 Active Vit-Fe Fumarate-FA ( Plus) 27-1 MG tablet One tablet by mouth daily 30 tablet 11 07/07/20 25 Active Vit-Fe Fumarate-FA ( Plus) 27-1 MG tablet One tablet by mouth daily 30 tablet 11 05/17/20 23 025 Discontinued(Re order (will not trigger notification to Pharmacy)) Active Problems No known active problems Encounters Date Type Department Care Team Description 07/07/2025 11:30 AM EDT Office Visit [facility] [address] [place] [address] [phone] Raisa Seals CNM Encounter for preconception consultation (Primary Dx); Encntr screen for infections w sexl mode of transmiss; Irregular menses 07/07/2025 Travel 07/06/2025 Telephone [facility] [address] [place] [address] [phone] Raisa Seals CNM chart prep 06/26/2025 Telephone [facility] [address] [place], [place] [phone] Alma Rosa Monahan NP Appointment Request 06/02/2025 Refill [facility] [address] [place] [address] Raisa Seals CNM Encounter for other general counseling or advice on contraception from Last 3 Months Social History Tobacco [...] 9.6 oz) 07/07/2025 11:37 AM EDT Height 154.9 cm (5' 1 ) 02/03/2025 8:56 AM EDT Body Mass Index 32.05 02/03/2025 8:56 AM EDT Plan of Treatment Health Maintenance Due Date Last Done Comments SDOH Screening 1985 Disability Screening 1985 HPV Vaccines (1 - 3-dose series) 2000 DTaP/Tdap/Td Vaccines (1 - Tdap) 2004 Hepatitis A Vaccines (1 of 2 - Risk 2-dose series) 2004 Hepatitis B Vaccines (1 of 3 - 19+ 3-dose series) 2004 Mammogram 2025 COVID-19 Vaccine (1 - 2023-2 5 season) 2025 Influenza Vaccine (#1) 2025 Alcohol/Substance Use Screening 07/07/2026 07/07/2025 Depression Screening 07/07/2026 07/07/2025, 07/07/2025 Family Planning (PISQ) 07/07/2026 07/07/2025 Tobacco Screening 07/07/2026 07/07/2025 Cervical Cancer Screening 05/31/2027 HPV/Cotest 05/31/2027 05/31/2022 Pap Smear 05/31/2027 05/31/2022, 05/31/2022 Zoster Vaccines (1 of 2) 2035 [...] Years) and At-Risk Patients (6 to 49) Years Aged Out No longer eligible b ased [...] Routine 07/07/2025 12:24 PM EDT Irregular menses THINPREP IMAGING PAP AND HPV MRNA E6/E7 [...] Recently Relevant to Health Maintenance Results * hCG, Total, Quantitative (07/07/2025 12:24 PM EDT) HCG Quantitative <2 mIU/mL [facility] Comment:Weeks post LMP Appro ximate hCG(Last Menstrual Period) Range (mIU/ml)3 - 4 weeks 9 - 1304 - 5 weeks 75 - 2,6005 - 6 weeks 850 - 20,8006 - 7 weeks 4000 - 100,2007 - 12 weeks 11,500 - 289,75777 - 16 weeks 18,300 - 137,25095 - 29 weeks (2nd trimester) 1,400 - 53,44594 - 41 weeks (3rd trimester) 940 - [...] 07/07/2025 1:28 PM EDT us Raisa Seals [facility] BLOOD ORDERABLES Maia rai Result [facility] [address] [place] [phone] * THINPREP TIS PAP AND HPV mRNA E6/E7 WITH REFLEX TO HPV 16,18/45 (05/31/2022 10:32 AM EDT) Clinical Information: None given [facility] COMMENT SEE COMMENT [facility] Comment: EXPLANATORY NOTE: The Pap is a screening test for cervical cancer. It is not a diagnostic test and is subject to false negative and false positive results. It is most reliable when a satisfactory sample, regularly obtained, is submitted with relevant clinical findings and history, and when the Pap result is evaluated along with historic and current clinical information. COMMENT: This Pap test has been evaluated with computer assisted technology. [facility] Cytotechnologis t: SEE COMMENT [facility] Comment: KAYLA JIMENEZ(ASCP) CT screening location: [place] [address] HPV nRNA E6/E7 Not Detected Not Detected [facility] Comment: Methodology: Court Usher-Mediated Amplification This assay detects E6/E7 viral messenger RNA (mRNA) from 14 high-risk HPV types (16,18,31,33,35,39,45,51,52,56,58,59,66,68). Cervical sources are required for HPV testing. If a vaginal source from a patient who has had a total hysterectomy with removal of cervix was submitted, please contact the testing laboratory for alternative testing options. For additional information, please refer to http://education.[employer]/faq/ONV519v5 (This link if provided for information/ educational purposes only.) Interpretation/ Result: Negative for intraepithelial lesion or malignancy. [facility] LMP: 05/2022 [facility] Prev. BX: NONE GIVEN [facility] Prev. PAP: UNSURE [facility] SOURCE: None given [facility] Statement Of Adequacy: SEE COMMENT [facility] Comment: Satisfactory for evaluation. Endocervical/transformation zone component present. 05/31/2022 10:3 2 AM EDT Raisa Arnel [facility] PATHOLOGY ORDERABLES Final Result Performing Organization Address [facility] Co de Phone Number [facility] [address] [place] [address], * Pap Smear (05/31/2022 12:00 AM EDT) Swab [facility] ORDERAB[facility] F inal Result Performing Organization Address [facility] Co de Phone Number [address], [place] [address] * HEPATITIS C AB W/REFL TO HCV RNA, QN, PCR (01/24/2022 11:04 AM EDT) HEPATITIS C ANTIBODY NON-REACT JOANNE NON-REACT JOANNE [facility] INDEX 0.02 <1.00 [facility] Comment: HCV antibody was non-reactive. There is no laboratory evidence of HCV infection. In most cases, no further action is required. However, if recent HCV exposure is suspected, a test for HCV RNA (test code 51243) is suggested. For additional information please refer to http://education.[employer]/faq/HML66j2 (This link is being provided for informational/ educational purposes only.) 01/24/2022 11:0 4 AM EDT Ana Rosa Bedoya [facility] HISTORICAL/NON ORDERABLE LABS Final Result Performing Organization Address [facility] Co de Phone Number [facility] [address] [place] [address], * HIV 1/2 ANTIGEN/ANTIBODY,FOURTH GENERATION W/RFL (01/24/2022 11:04 AM EDT) HIV-1/2 ANTIGEN AND ANTIBODIES, 4TH GENERATION W/ REFLEX NON-REACT JOANNE NON-REACT JOANNE [facility] Comment: HIV-1 antigen and HIV-1/HIV-2 antibodies were not detected. There is no laboratory evidence of HIV infection. PLEASE NOTE: This information has been disclosed to you from records whose confidentiality may be protected by state law. If your state requires such protection, then the state law prohibits you from making any further disclosure of the information without the specific written consent of the person to whom it pertains, or as otherwise permitted by law. A general authorization for the release of medical or other information is NOT sufficient for this purpose. For additional information please refer to http://education.[employer]/faq/DBJ761 (This link is being provided for informational/ educational purposes only.) The performance of this assay has not been clinically validated in patients less than 2 years old. 01/24/2022 11:0 4 AM EDT us Ana Rosa Bedoya [facility] BLOOD ORDERABLES Final Res ult Performing Organization Address City/State/[facility] Co ca Phone Number [facility] [address] from Last 3 Months or Most Recently Relevant to Health Maintenance Insurance [facility] Care Teams Insurance Claims Examiner Relationship Specialty Start Date End Date Alma Rosa Monahan NP [address] [place] [phone] PCP - General Family Medicine 03/19/24
--- OUTSIDE RECORDS SUMMARY | 2025-07-07 15:39 | XMS_ITS | Encounter Summary ---
Author Organization [employer] Address [address] [facility] [address] [place] [address] Care Team Providers Care Balance Assembler Name Role Phone Alma Rosa Monahan NP Primary Care Provider [phone] Reason for Visit * Reason Onset Date Comments chart prep 07/06/2025 Encounter Details Date Type Department Care Team ([facility] st Contact Info) Description 07/06/2025 Telephone [facility] [address] [place], [place] [phone] Raisa Seals, JESSICA [address] [place], [place] [phone] chart prep Social History Tobacco Use Types Packs/Day Years [...] Q2 Not on file 07/07/2025 Comments No Sex and Gender Information Value Date Recorded Sex Assigned at Female 07/17/2022 10:39 AM EDT Legal Sex Female 10:39 AM EDT Gender Identity Choose not to disclose 10:39 AM EDT Sexual Orientation Choose not to disclose 2021 10:39 AM EDT documented as of this encounter Miscellaneous Notes * Telephone Encounter - Troy Fajardo MA - 07/06/2025 9:53 AM EDT Chart Prep Labs: done Images: not applicable Referrals: not applicable Vaccines due: Covid, Flu, Tdap, Hep B, Hep A, and HPV Screenings: mammogram Overdue care gaps: SBIRT, SDOH, PHQ-9, IDMA-7, Oral health screening, and Disability screen documented in this encounter Plan of Treatment Not on file documented as of this encounter Visit Diagnoses Not on filedocumented in this encounter Care Teams Balance Assembler Relationship Specialty Start Date End Date Alma Rosa Monahan NP [address] [place] [address] PCP - General Family Medicine 03/19/24 documented as of this encounter
--- OUTSIDE RECORDS SUMMARY | 2025-07-07 15:39 | XMS_ITS | Encounter Summary ---
Author Organization [employer] Address [address] [facility] [address] [place] [address] Care Team Providers Care Casing Machine Operator Name Role Phone Hero Alma Rosa GHASSAN Primary Care Provider [phone] Encounter Details Date Type Department Care Team (Latest Contact Info) Description 07/07/2025 Travel Social History Tobacco Use Types Packs/Day [...] AM EDT documented as of this encounter Functional Status * Over the [...] Michel [place] documented as of this encounter Plan of Treatment Not on file documented as of this encounter Visit Diagnoses Not on filedocumented in this encounter Care Teams Casing Machine Operator Relationship Specialty Start Date End Date Alma Rosa Monahan NP [address] [place] [address] PCP - General Family Medicine 03/19/24 documented as of this encounter
[2025-07-08 05:46] LABS: CT PCR NOT DETECTED (Not Detect.); NG PCR NOT DETECTED (Not Detect.)
== END 2025-07-07 12:11 | disposition home or self-care (01) ==
LOC: HO.HHCL 12:10
PROVIDERS: PCP Advanced Practice Midwife; Visit Provider Advanced Practice Midwife
DX: Z20.2 Contact with and (suspected) exposure to infections with a predominantly sexual mode of transmission (principal); N92.6 Irregular menstruation, unspecified
CPT/HCPCS: 36415; 84702; 87491; 87591